=== PATIENT | female | born 1985 | race Caucasian/White ===

== ENCOUNTER 2018-12-15 23:16 | Inpatient (IN) ==
[2018-12-16 00:13] LABS: Basophils # 0.1 K/mm3 (0-0.2); Basophils % 0.6 % (0.1-2.0); Eosinophils # 0.1 K/mm3 (0.0-0.4); Eosinophils % 0.6 % (0.1-12.0); Hematocrit 33.4 % (37.0-47.0); Hemoglobin 11.5 g/dL (12.2-16.2); Lymphocytes # 2.6 K/mm3 (0.7-4.5); Lymphocytes % 20.9 % (10-50); Mean Corpuscular HGB Conc 34.4 g/dL (31.8-35.4); Mean Corpuscular Hemoglobin 29.2 pg (27.0-31.2); Mean Platelet Volume 9.3 fl (7.4-10.4); Monocytes # 0.6 K/mm3 (0.1-1.0); Monocytes % 4.9 % (1.7-9.3); Neutrophils # 9.3 K/mm3 (1.8-7.8); Neutrophils % 73.1 % (37.0-80.0); Platelet Count 187 K/mm3 (142-424); Red Blood Count 3.93 M/mm3 (4.20-5.40); Red Cell Distribution Width 14.6 % (11.5-17.5); White Blood Count 12.7 K/mm3 (4.8-10.8)
--- NOTE | 2018-12-16 00:23 | History & Physical Report ---
OB - H&P: HPI Antepartum - History of Present Illness Chief complaint: Ruptured membranes History of present illness: She is a 33-year-old 3 para 2 who is 40 weeks and 1 day gestational age. She has had care in [facility] and lives in [place]. She ruptured her membranes at home tonight around 930 and because she did not think she was going to make it to the hospital in [place] she asked the ambulance to bring her to [place]. - History of Present Criteria for establishing EDC:: LMP confirmed by 1st trimester US care: good care Ultrasounds: normal 1st trimester US, normal mid trimester US Obstetrical complications: none Medical complications: neurological, other Narrative: She has a history of seizures and takes Keppra. [facility] History I have reviewed the patient's past medical history: Yes - *Social History Alcohol Intake: never Review of Systems - Review of Systems Review of systems:: pertinent systems reviewed and negative unless documented below Meds Allergies Allergy/AdvReac Type Severity Reaction Status Date / Time haloperidol [From Haldol] Allergy Unknown Verified 05/29/18 07:03 NSAIDS (Non-Steroidal Allergy Unknown Verified 05/29/18 07:03 Anti-Inflamma Penicillins Allergy Unknown Verified 05/29/18 07:03 OB - H&P: Exam - Constitutional no acute distress - Routine HEENT Exam Head: Present: normocephalic Eye: Present: EOMI, PERRL ENT: Present: mucous membranes moist - Routine Neck Exam Present: supple, full ROM - Routine Respiratory Exam Absent: accessory muscle use (good air entry bilaterally), respiratory distress, wheezes, crackles - Routine Cardiovascular Exam Present: RRR. Absent: murmur - Routine Abdominal Exam Present: soft, normoactive bowel sounds. Absent: tenderness, distended, guarding - Routine Rectal Exam Patient deferred: visual exam, digital exam - Routine Exam Patient deferred: external exam, groin exam, perineal exam Comments: Her cervix is 4 cm 75% Station -2. There is thin meconium. Nonstress test is reactive. She is having contractions every 3-5 minutes. - Routine Extremities Exam Present: full ROM. Absent: cyanosis, edema - Routine Skin Exam Present: intact. Absent: cyanosis - Routine Neurological Exam Present: alert, oriented X3 - Routine Psychiatric Exam Present: normal affect OB - Results - Labs Labs: Short CBC 12/15/18 Range/Units 23:35 WBC 12.7 H (4.8-10.8) K/mm3 Hgb 11.5 L (12.2-16.2) g/dL Hct 33.4 L (37.0-47.0) % Plt Count 187 (142-424) K/mm3 OB - A/P Antepartum (1) Maternal seizure disorder Current visit: Yes Status: Acute (2) Tobacco smoking affecting Current visit: Yes Status: Acute (3) Meconium in amniotic fluid Current visit: Yes Status: Acute (4) Normal delivery at term Current visit: Yes Status: Acute - Additional Plan Planning to breastfeed?: No Plan: expectant management Additional Information:: She is 4 cm dilated 75% -2. We will continue to monitor her and expect a vaginal delivery since she has had 2 previous vaginal deliveries. Fetus is in the cephalic presentation. Nonstress test is reactive.
[2018-12-16 01:39] LABS: Microscopic, Urine URINE MICROSCOPIC (MICROSCOPIC)
[2018-12-16 01:40] LABS: Appearance,Urine CLEAR (Clear); Bilirubin,Urine Negative (Negative); Blood, Urine Negative (Negative); Color,Urine YELLOW (Yellow); Glucose,Urine (UA) Negative (Negative); Ketones,Urine Negative (Negative); Leukocyte Esterase,Urine Negative (Negative); PH,Urine 6.5 (5.0-8.5); Protein,Urine Negative (Negative); Specific Gravity, Urine <= 1.005 (1.005-1.030); Urobilinogen,Urine 0.2 EU/dl (0.2)
[2018-12-16 01:45] LABS: Amphetamine/Metha Screen,Urine Negative ng/mL (<1000); Barbiturates Screen,Urine Negative ng/mL (<200); Benzodiazepines Screen,Urine Positive ng/mL (<200); Cannabinoid Screen,Urine Negative ng/mL (<50); Cocaine Screen,Urine Negative ng/mL (<300); Methadone Screen,Urine Negative ng/mL (<300); Opiate Screen,Urine Negative ng/mL (<300); Phencyclidine Screen,Urine Negative ng/mL (<25)
[2018-12-16 01:46] LABS: Amorphous Sediment,Urine Trace /lpf; Bacteria,Urine Trace /lpf
--- NOTE | 2018-12-16 03:18 | Progress Note ---
[facility] Anesthesia Checklist - Patient Identification Patient Identification: Arm Band - Structural Data Admitted From: Home Planned Operative Procedure/s: labor epidural Consent for Planned Operative Procedure(s) Verified: Yes Verified Documents: Surgical Consent, History and Physical - NPO Status Verified Time NPO: 00:00 - Additional verifications Anesthesia Reactions: No - Airway Assessment C-Spine Mobility Assessed: Yes TMJ Mobility Assessed: Yes - Neurological Assessment Level of Consciousness: Awake, Alert, Drowsy (pt drowsy due to recent dose of stadol) - Anesthesia Plan Anesthesia Risk discussed: Yes Anesthesia Plan: Verified ASA Class: II Anesthesia Type: Epidural [facility] History I have reviewed the patient's past medical history: Yes Medical History: Reports:: Seizures Have you ever received a pneumonia vaccine?: No Have you received a flu vaccine this season?: No Other Surgeries: No: - *Social History Alcohol Intake: never Para: 2
--- NOTE | 2018-12-16 09:30 | Progress Note ---
Labor Note - Subjective: Date: 12/16/18 Time: 09:29 regular contraction - Objective: NST:: Reactive Contractions:: every 2-3 minutes Cervical Dilation:: 5 Effacement:: 100% Station: 0 Membranes: ruptured - Fetus: Monitoring?: Yes monitoring type:: External - Assessment: Labor progressing?: Yes Cephalopelvic disproportion?: No Patient Problems: All Active Problems Seizure (Acute) Maternal seizure disorder (Acute) Tobacco smoking affecting (Acute) Meconium in amniotic fluid (Acute) Normal delivery at term (Acute) - Plan: Anesthesia for epidural?: No Continue to labor down?: Yes Plan for ?: No Continue to monitor?: Yes Start pushing?: No Comment:: She continues to progress. The nonstress test reactive. We will expect a vaginal delivery.
--- NOTE | 2018-12-16 13:45 | Procedure Note ---
- Delivery Note Delivery Date:: 12/16/18 Delivery Time:: 13:00 Anesthesia Type: Epidural Was labor medically induced?: No Gestational age (weeks): 41 Infant delivered prior to 39 weeks?: No at 1 minute: 7 at 5 minutes: 9 Delivery Procedure:: Spontaneous vaginal delivery of vigorous liveborn female over intact perineum. Apgars: 7 & 9 Delivery uncomplicated; no nuchal cord or shoulder dystocia with delivery Thick meconium noted Infant taken to warmer for nursing assessment and suction immediately after umbilical cord clamped/cut Placenta spontaneously expressed and examined; noted to be complete/intact Vulva, vagina, and cervix inspected; no perineal, vaginal, labial or cervical lacerations noted EBL: 300cc All sponge/needle/instrument counts correct at conclusion of procedure Disposition: Mom/baby stable to recovery in [facility] SW consult in progress Placental Delivery Description: Spontaneous
[2018-12-17 07:01] LABS: Hematocrit 33.7 % (37.0-47.0); Hemoglobin 11.5 g/dL (12.2-16.2)
[2018-12-17 20:30] VITALS: BP 143/66
--- NOTE | 2018-12-18 08:23 | Discharge Summary ---
General - General Admission date:: 12/15/18 Discharge date: 12/18/18 HPI HPI: She is a 33-year-old 3 now para 3 who was 40 and 1 she ruptured membranes at home and came in by ambulance to labor and delivery. She says she has received care in [facility]. Hospital Course Hospital Course: She had ruptured membranes and progressed to full dilation. She delivered spontaneously a liveborn female child at 12:32 PM on December 16, 2018. The baby weighed 7 pounds 7 ounces and was 19 inches long. She had Apgars of 7 at 1 minute and 9 at 5 minutes. There was thin meconium. She has done well and has remained afebrile throughout her hospitalization. She is eating and drinking and ambulating. She is bottlefeeding. Her drama professor is Dr. Villanueva. She has O Rh- blood and she has received RhoGam. She was group A streptococcus positive and did receive IV antibiotics while in labor. She is rubella immune. She is hepatitis B surface antigen negative. She is hepatitis C positive. She is being seen by drug abuse social worker this morning and they will determine whether she gets to go home with her baby. Apparently her other 2 children are in foster care. Rhogam Administration: Given Objective Vital signs: Temp Pulse Resp BP Pulse Ox 98.2 F 46 L 16 143/66 H 99 12/17/18 20:00 12/17/18 20:00 12/17/18 20:00 12/17/18 20:00 12/17/18 20:00 no acute distress Results Labs on day of discharge: Labs from last 24 hours 12/17/18 12/17/18 12/17/18 22:15 06:18 06:18 Blood Type Antibody Screen Negative Screen Positive A Baby's Rh Status Positive Rhogam Infusion Rhogam release KB Hemoglobin No cells seen DS: Diagnosis - Discharge Diagnosis (1) Maternal seizure disorder Status: Acute (2) Tobacco smoking affecting Status: Acute (3) Meconium in amniotic fluid Status: Acute (4) Normal delivery at term Status: Acute (5) GBS (group B Streptococcus carrier), +RV culture, currently Status: Acute (6) Hepatitis C antibody test positive Status: Acute Problem details: records [facility] document negative RNA (7) Limited care Status: Acute Problem details: 3 total visits this Discharge Plan - Patient Discharge Instructions ACTIVITY: No heavy lifting DIET: continue same diet Additional Instructions: NO HEAVY LIFTING, NO STRENUOUS ACTIVITY, NOTHING IN THE VAGINA FOR 6 WEEKS. Patient Instructions: Depression, Hemorrhage, [facility] Post Discharge Instructions - Follow up Plan Follow up with: Ariane Olivares MD [Staff Physician] - Disposition: Home, Self-[facility] Medications: Home Medications Medication Instructions Recorded Confirmed Type [id number]/Iron Fumarate/FA/Dss 1 each PO DAILY 12/16/18 12/16/18 History [ 19 Tablet] cloNIDine HCl [cloNIDine 0.2mg 0.2 mg PO HS 12/16/18 12/16/18 History Tablet] levETIRAcetam [Keppra] 1,000 mg PO BID 12/16/18 12/16/18 History Prescriptions/Medication Reconciliation: Continue levETIRAcetam [Keppra] 1,000 mg PO BID Rav261/Iron Fumarate/FA/Dss [ 19 Tablet] 1 each PO DAILY cloNIDine HCl [cloNIDine 0.2mg Tablet] 0.2 mg PO HS
== END 2018-12-18 12:00 | disposition home or self-care (01) | DRG 806 ==
LOC: OB → OBSVTOIN 23:16
PROVIDERS: ADMIT Nurse Practitioner Obstetrics & Gynecology; ATTEND Nurse Practitioner Obstetrics & Gynecology
CPT/HCPCS: 36415; 59025; 80177; 80305; 81001; 85014; 85018; 85025; 85460; 85461; 86850; 94640; 94761; J0595; J1050; J2790; S0077

== ENCOUNTER 2020-06-11 00:04 | Emergency (ER) | payer MEDICAID, SELFPAY ==
[2020-06-11 00:23] VITALS: BMI 35.7
[2020-06-11 00:25] VITALS: BP 105/64; PULSE 75; RESP 16; TEMP 37.7; O2SAT 100; BMI 39.9
--- NOTE | 2020-06-11 00:32 | XR_ITS ---
PROCEDURE: XR CHEST PORTABLE CLINICAL HISTORY: cough COMPARISON: CXR2 CHEST-AP VIEW ONLY from 09/28/2015 CXR1 CHEST-PORTABLE from 10/07/2015 FINDINGS: The cardiomediastinal silhouette and pulmonary vascularity are within normal limits. The lungs are clear without infiltrates, suspicious nodules, or pleural effusions. Calcified granuloma is present in the right lower lung zone No acute bony abnormalities. IMPRESSION: No acute findings. Dictated by: John Argueta MD 06/11/2020 06:28 Electronically signed by John Argueta MD in [place] 06/11/2020 06:28
[2020-06-11 00:43] LABS: Microscopic, Urine URINE MICROSCOPIC (MICROSCOPIC)
[2020-06-11 00:51] LABS: Alanine Aminotransferase 14 U/L (12-78); Albumin Level 4.2 g/dl (3.5-5.0); Albumin/Globulin Ratio 1.5 (1.1-1.8); Alkaline Phosphatase 98 U/L (38-126); Anion Gap 14.4 mEq/L (5-15); Aspartate Amino Transferase 25 U/L (14-36); Bilirubin,Total 0.6 mg/dl (0.2-1.3); Blood Urea Nitrogen 7 mg/dl (7-17); Carbon Dioxide 23 mmol/L (22.0-30.0); Chloride 107 mmol/L (98-107); Creatinine Clearance Estimated 225 mL/min (50-200); Estimated Glomerular Filt Rate 114 ml/min (>60); Ethyl Alcohol 90 mg/dl (0-10); GFR (African American) 138 ML/MIN (>60); Globulin 2.8 g/dL (1.3-3.2); Glucose 89 mg/dl (74-100); Potassium 3.4 mmoL/L (3.5-5.1); Sodium 141 mmol/L (136-145)
[2020-06-11 00:58] LABS: Appearance,Urine CLEAR (Clear); Bilirubin,Urine Negative (Negative); Blood, Urine Negative (Negative); Color,Urine YELLOW (Yellow); Glucose,Urine (UA) Negative (Negative); Ketones,Urine Negative (Negative); Leukocyte Esterase,Urine TRACE (Negative); Nitrate,Urine POSITIVE (Negative); PH,Urine 6.5 (5.0-8.5); Protein,Urine Negative (Negative); Specific Gravity, Urine <= 1.005 (1.005-1.030); Urobilinogen,Urine 0.2 EU/dl (0.2)
[2020-06-11 01:00] VITALS: BP 116/74; PULSE 66; RESP 16; O2SAT 98
[2020-06-11 01:01] LABS: Basophils # 0.1 K/mm3 (0-0.2); Basophils % 0.7 % (0.1-2.0); Eosinophils # 0.2 K/mm3 (0.0-0.4); Eosinophils % 1.3 % (0.1-12.0); Hemoglobin 14.6 g/dL (12.2-16.2); Lymphocytes # 4.2 K/mm3 (0.7-4.5); Lymphocytes % 35.5 % (10-50); Mean Corpuscular HGB Conc 34.9 g/dL (31.8-35.4); Mean Corpuscular Hemoglobin 29.5 pg (27.0-31.2); Mean Corpuscular Volume 84.8 fl (81-99); Mean Platelet Volume 8.9 fl (7.4-10.4); Monocytes # 0.6 K/mm3 (0.1-1.0); Monocytes % 4.8 % (1.7-9.3); Neutrophils # 6.8 K/mm3 (1.8-7.8); Neutrophils % 57.7 % (37.0-80.0); Platelet Count 232 K/mm3 (142-424); Red Blood Count 4.95 M/mm3 (4.20-5.40); Red Cell Distribution Width 14.5 % (11.5-17.5); White Blood Count 11.8 K/mm3 (4.8-10.8)
[2020-06-11 01:10] LABS: Urine Pregnancy, HCG Qual. Negative (Negative)
[2020-06-11 01:11] LABS: Bacteria,Urine 1+ /lpf
--- NOTE | 2020-06-11 01:20 | PC.NURSE ---
discussed in-house swab with house worker. house worker to approach re: necessary of test needed
[2020-06-11 01:22] LABS: Barbiturates Screen,Urine Negative ng/ml (<200); Benzodiazepines Screen,Urine Negative ng/ml (<200); Cannabinoid Screen,Urine Positive ng/ml (<50); Cocaine Screen,Urine Negative ng/ml (<300); Methadone Screen,Urine Negative ng/ml (<300); Opiate Screen,Urine Negative ng/ml (<300); Phencyclidine Screen,Urine Negative ng/ml (<25)
[2020-06-11 01:27] LABS: Coronavirus 19 IgG Antibody Negative (Negative); Coronavirus 19 IgM Antibody Negative (Negative); Strep Scrn Group A (Rapid) Negative (Negative)
[2020-06-11 01:28] LABS: Amphetamine/Metha Screen,Urine Negative ng/ml (<1000)
[2020-06-11 01:30] VITALS: BP 138/87; PULSE 66; RESP 15; O2SAT 97
--- NOTE | 2020-06-11 01:46 | HMH.EDFEV ---
ED Disposition Clinical Impression: Alcohol use, Obesity, Class II, BMI 35-39.9, Positive urine drug screen CAP (community acquired pneumonia) Qualifiers: Laterality: right Lung location: lower lobe of lung Qualified Code(s): J18.9 - Pneumonia, unspecified organism Disposition: Home, Self-Care Condition on Discharge: Good Instructions: DI for Fever (Symptom) -- Adult Additional Instructions: fluids and tyenol and use antibiotic and quartine self pending results of covid-19 tests and social distance and mask with good hand washing Prescriptions: levoFLOXacin [Levaquin 500mg tab] 500 mg PO DAILY #7 tab Prescription Printed Referrals: PCP,No [Primary Care Provider] - - Critical Care Critical Care Time: No Attestation: On 06/11/20, the high probability of a clinically significant, sudden or life threatening deterioration of the following system(s) required my full and direct attention, intervention and personal management. The time I documented below is in addition to time spent performing reported procedures but includes the following listed in this critical care notation. Medical Decision Making - Medical Records Medical records reviewed: Yes: I reviewed the patient's medical records. - Yonatan Inquiry Pt receiving controlled substance: No Vital Signs: 06/11/20 00:25 06/11/20 01:00 06/11/20 01:30 Temperature 99.9 F H Temperature Source Oral Pulse Rate [Right Brachial] 75 66 66 Respiratory Rate 16 16 15 Blood Pressure [Right Arm] 105/64 L 116/74 138/87 Blood Pressure Mean [Right Arm] 77 88 104 Blood Pressure Source [Right Arm] Automatic Cuff Automatic Cuff Automatic Cuff Blood Pressure Position [Right Arm] Supine Sitting Sitting 02 Sat by Pulse Oximetry 100 98 97 Oxygen Delivery Method Room Air Room Air Room Air 06/11/20 02:00 Temperature Temperature Source Pulse Rate [Right Brachial] 66 Respiratory Rate 15 Blood Pressure [Right Arm] 96/42 L Blood Pressure Mean [Right Arm] 60 Blood Pressure Source [Right Arm] Automatic Cuff Blood Pressure Position [Right Arm] Sitting 02 Sat by Pulse Oximetry 97 Oxygen Delivery Method Room Air - Lab Data Lab results reviewed: Yes: I reviewed the patient's lab results. Lab Results 06/11/20 00:20: Urine Color Yellow, Urine Appearance Clear, Urine pH 6.5, Ur Specific [place] <= 1.005, Urine Protein Negative, Urine Glucose (UA) Negative, Urine Ketones Negative, Urine Blood Negative, Urine Nitrate Positive, Urine Bilirubin Negative, Urine Urobilinogen 0.2, Ur Leukocyte Esterase Trace, Urine WBC 3-5, Ur Squamous Epith Cells 3-5, Urine Bacteria 1+ 06/11/20 00:20: WBC 11.8 H, RBC 4.95, Hgb 14.6, Hct 42.0, MCV 84.8, MCH 29.5, MCHC 34.9, RDW 14.5, Plt Count 232, MPV 8.9, Neut % (Auto) 57.7, Lymph % (Auto) 35.5, [place] % (Auto) 4.8, Eos % (Auto) 1.3, Baso % (Auto) 0.7, Neut # (Auto) 6.8, Lymph # (Auto) 4.2, [place] # (Auto) 0.6, Eos # (Auto) 0.2, Baso # (Auto) 0.1 06/11/20 00:20: Urine HCG, Qual Negative 06/11/20 00:20: Sodium 141, Potassium 3.4 L, Chloride 107, Carbon Dioxide 23, Anion Gap 14.4, BUN 7, Creatinine 0.60, Estimated Creat Clear 225, Estimated GFR 114, Est GFR ( Amer) 138, Glucose 89, Calcium 9.0, Total Bilirubin 0.6, AST 25, ALT 14, Alkaline Phosphatase 98, Total Protein 7.0, Albumin 4.2, Globulin 2.8, Albumin/Globulin Ratio 1.5 06/11/20 00:20: Lactate 1.0 06/11/20 00:20: Influenza Type A Ag Negative, Influenza Type B Ag Negative, SARS-CoV-2 IgG Ab (Rapid) Negative, SARS-CoV-2 IgM Ab (Rapid) Negative 06/11/20 00:20: Group A Strep Rapid Negative 06/11/20 00:20: Urine Opiates Screen Negative, Urine Methadone Screen Negative, Ur Barbituates Screen Negative, Ur Phencyclidine Scrn Negative, Ur Amphetamines Screen Negative, U Benzodiazepines Scrn Negative, Urine Cocaine Screen Negative, U Marijuana (THC) Screen Positive H 06/11/20 00:20: Plasma/Serum Alcohol 90 H Result diagrams: 06/11/20 00:20 06/11/20 00:20 Orders (Tests/Meds): ED MEDICATIONS Generi
--- NOTE | 2020-06-11 01:55 | PC.NURSE ---
now states patient can be swabbed with the overnight covid swab instead of rapid. lab notified.
[2020-06-11 02:00] VITALS: BP 96/42; PULSE 66; RESP 15; O2SAT 97
--- NOTE | 2020-06-11 02:03 | PC.NURSE ---
call placed to sig other by patient, told to come pick her up
[2020-06-11 02:42] VITALS: BP 124/70; PULSE 75; RESP 16; TEMP 36.8; O2SAT 98
[2020-06-12 13:00] LABS: Covid-19 Nasal PCR Sendout Lex Not Detected
== END 2020-06-11 02:42 | disposition home or self-care (01) ==
PROVIDERS: Emergency Provider Emergency Medicine
DX: J18.9 Pneumonia, unspecified organism (principal); F10.10 Alcohol abuse, uncomplicated; E66.9 Obesity, unspecified; Z68.39 Body mass index [BMI] 39.0-39.9, adult; F12.10 Cannabis abuse, uncomplicated; R56.9 Unspecified convulsions; Z03.818 Encounter for observation for suspected exposure to other biological agents ruled out; Z88.0 Allergy status to penicillin; Z88.8 Allergy status to other drugs, medicaments and biological substances; Z79.899 Other long term (current) drug therapy
CPT/HCPCS: 71045; 80053; 80305; 81001; 81025; 83605; 85025; 86328; 87040; 87086; 87275; 87276; 87430; 96365; 96367; 96375; 99284; J1956; U0004

== ENCOUNTER 2022-02-07 18:29 | Inpatient (IN) | payer MEDICAID, SELFPAY ==
--- NOTE | 2022-02-07 18:41 | P.PCN_ITS ---
- Delivery Note Delivery Date:: 02/07/22 Delivery Time:: 18:23 Anesthesia Type: None Was labor medically induced?: No Induction method: none Gestational age (weeks): 38 delivered prior to 39 weeks?: Yes Justification for early elective delivery:: Active Labor Infant Gender: Female at 1 minute: 9 at 5 minutes: 9 Delivery Procedure:: She is a 36-year-old 4 para 3 for now at 38 weeks gestational age. She has had limited care. She has been seen in [place]. She came in in active labor and was found to be fully dilated when she arrived. She subsequently precipitously progressed to full dilation and delivered spontaneously a liveborn female child at 6:23 PM in the evening of February 07, 2022. The nurses were in attendance for the delivery. I arrived about a minute after the delivery. She received IV oxytocin using gentle traction the cord and countertraction the fundus I was able to easily deliver the placenta intact at 6:28 PM. Had normal three-vessel cord. There were no perineal or vaginal lacerations. Her blood type is unknown. As is her group B strep status. The estimated blood loss was approximately 200 cc. Placental Delivery Description: Spontaneous
[2022-02-07 18:43] VITALS: BMI 25.7
--- NOTE | 2022-02-07 18:48 | P.HP_ITS ---
OB - H&P: HPI Antepartum - History of Present Illness Chief complaint: Active labor, insufficient care History of present illness: She is a 36-year-old 4 para 3 who arrived in active labor and was found to be fully dilated. She delivered precipitously. She has had insufficient care in [place]. She is not sure how many visits she had - History of Present Criteria for establishing EDC:: LMP confirmed by 1st trimester US care: limited care Ultrasounds: normal 1st trimester US Obstetrical complications: none Medical complications: none [facility] History I have reviewed the patient's past medical history: Yes Medical History: Reports:: Seizures *Have you ever received a pneumonia vaccine?: Yes *Have you received a flu vaccine this season?: Yes Other Surgeries: No: - *Social History Smoking Status: Current every day smoker Alcohol Intake: never *Occupational Status:: unemployed *Travel in the last 8 weeks: None Family Hx:: No significant family history Review of Systems - Review of Systems Review of systems:: pertinent systems reviewed and negative unless documented below Meds Home Medications Medication Instructions Recorded Confirmed Type Prenat 115/Iron Fum/Folic/Dss 1 each PO DAILY 12/16/18 12/16/18 History [ 19 Tablet] cloNIDine HCL [cloNIDine 0.2mg 0.2 mg PO HS 12/16/18 12/16/18 History Tablet] levETIRAcetam [Keppra] 1,000 mg PO BID 12/16/18 12/16/18 History levoFLOXacin [Levaquin 500mg 500 mg PO DAILY #7 tab 06/11/20 Rx tab] Allergies Allergy/AdvReac Type Severity Reaction Status Date / Time haloperidol [From Haldol] Allergy Unknown Verified 05/29/18 07:03 NSAIDS (Non-Steroidal Allergy Unknown Verified 05/29/18 07:03 Anti-Inflamma Penicillins Allergy Unknown Verified 05/29/18 07:03 OB - H&P: Exam - Constitutional no acute distress - Routine HEENT Exam Head: Present: normocephalic Eye: Present: EOMI, PERRL ENT: Present: mucous membranes moist - Routine Neck Exam Present: supple, full ROM - Routine Respiratory Exam Absent: accessory muscle use (good air entry bilaterally), respiratory distress, wheezes, crackles - Routine Cardiovascular Exam Present: RRR. Absent: murmur - Routine Abdominal Exam Present: soft, normoactive bowel sounds. Absent: tenderness, distended, guarding - Routine Rectal Exam Patient deferred: visual exam, digital exam - Routine Exam Patient deferred: external exam, groin exam, perineal exam - Routine Extremities Exam Present: full ROM. Absent: cyanosis, edema - Routine Skin Exam Present: intact. Absent: cyanosis - Routine Neurological Exam Present: alert, oriented X3 - Routine Psychiatric Exam Present: normal affect OB - A/P Antepartum (1) Insufficient care Status: Acute (2) Precipitous delivery, delivered (current hospitalization) Status: Acute - Additional Plan Planning to breastfeed?: No Plan: other Additional Information:: She arrived in active labor and delivered precipitously.
[2022-02-07 19:05] LABS: Coronavirus 19, PCR Not Detected (NotDetected); Influenza A, PCR Not Detected (NotDetected); Influenza B, PCR Not Detected (NotDetected)
[2022-02-07 19:10] LABS: Basophils # 0.2 K/mm3 (0-0.2); Basophils % 1.3 % (0.1-2.0); Eosinophils # 0.1 K/mm3 (0.0-0.4); Eosinophils % 0.6 % (0.1-12.0); Hematocrit 31.7 % (37.0-47.0); Hemoglobin 10.2 g/dL (12.2-16.2); Lymphocytes # 2.3 K/mm3 (0.7-4.5); Lymphocytes % 17.1 % (10-50); Mean Corpuscular Hemoglobin 27.4 pg (27.0-31.2); Mean Corpuscular Volume 85.5 fl (81-99); Monocytes # 0.6 K/mm3 (0.1-1.0); Monocytes % 4.8 % (1.7-9.3); Neutrophils # 10.2 K/mm3 (1.8-7.8); Neutrophils % 76.2 % (37.0-80.0); Platelet Count 245 K/mm3 (142-424); Red Blood Count 3.71 M/mm3 (4.20-5.40); Red Cell Distribution Width 17.1 % (11.5-17.5); White Blood Count 13.3 K/mm3 (4.8-10.8)
[2022-02-07 19:47] VITALS: BMI 25.0
[2022-02-07 20:11] LABS: Microscopic, Urine URINE MICROSCOPIC (MICROSCOPIC)
[2022-02-07 20:12] LABS: Appearance,Urine CLEAR (Clear); Bilirubin,Urine Negative (Negative); Blood, Urine 3+ (Negative); Color,Urine RED (Yellow); Glucose,Urine (UA) TRACE (Negative); Ketones,Urine TRACE (Negative); Leukocyte Esterase,Urine 2+ (Negative); Nitrate,Urine POSITIVE (Negative); PH,Urine 7.5 (5.0-8.5); Protein,Urine 3+ (Negative)
[2022-02-07 21:46] LABS: Amphetamine/Metha Screen,Urine Negative ng/ml (<1000); Barbiturates Screen,Urine Negative ng/ml (<200)
[2022-02-07 21:47] LABS: Benzodiazepines Screen,Urine Negative ng/ml (<200)
[2022-02-07 21:48] LABS: Cannabinoid Screen,Urine Negative ng/ml (<50); Cocaine Screen,Urine Negative ng/ml (<300)
[2022-02-07 21:49] LABS: Methadone Screen,Urine Negative ng/ml (<300)
[2022-02-07 21:50] LABS: Opiate Screen,Urine Negative ng/ml (<300); Phencyclidine Screen,Urine Negative ng/ml (<25)
[2022-02-07 22:03] LABS: RBC,Urine TNTC #/hpf (0-3); Squamous Epithelial Cell,Urine Occasional #/hpf (0-5)
[2022-02-07 22:04] LABS: Bacteria,Urine Trace /lpf
[2022-02-08 06:49] LABS: Hematocrit 29.3 % (37.0-47.0); Hemoglobin 9.4 g/dL (12.2-16.2)
--- NOTE | 2022-02-08 07:23 | HMH.PHAINT ---
MEDICATION RECONCILIATION COMPLETED ON PATIENT USING EXTERNAL FILL HISTORY FROM PHARMACY. -MAREK MOELLER, EBONYD
[2022-02-08 08:41] LABS: Basophils # 0.2 K/mm3 (0-0.2); Basophils % 2.2 % (0.1-2.0); Eosinophils # 0.1 K/mm3 (0.0-0.4); Eosinophils % 0.9 % (0.1-12.0); Hematocrit 32.1 % (37.0-47.0); Hemoglobin 10.3 g/dL (12.2-16.2); Lymphocytes # 2.7 K/mm3 (0.7-4.5); Lymphocytes % 26.5 % (10-50); Mean Corpuscular Hemoglobin 27.5 pg (27.0-31.2); Monocytes # 0.6 K/mm3 (0.1-1.0); Neutrophils # 6.5 K/mm3 (1.8-7.8); Neutrophils % 64.4 % (37.0-80.0); Platelet Count 283 K/mm3 (142-424); Red Blood Count 3.73 M/mm3 (4.20-5.40); White Blood Count 10.1 K/mm3 (4.8-10.8)
--- NOTE | 2022-02-08 13:54 | HMH.ACPN2 ---
Internal Medicine - PN: Man *Date: 02/08/22 *Time: 13:54 Interval history: She is doing very well. She is bottlefeeding. Her lochia is normal. Exam Vital signs and Labs for Last 24 Hours: Laboratory Results - last 24 hr 02/07/22 18:55: WBC 13.3 H, RBC 3.71 L, Hgb 10.2 L, Hct 31.7 L, MCV 85.5, MCH 27.4, MCHC 32.0, RDW 17.1, Plt Count 245, MPV 10.0, Neut % (Auto) 76.2, Lymph % (Auto) 17.1, [place] % (Auto) 4.8, Eos % (Auto) 0.6, Baso % (Auto) 1.3, Neut # (Auto) 10.2 H, Lymph # (Auto) 2.3, [place] # (Auto) 0.6, Eos # (Auto) 0.1, Baso # (Auto) 0.2 02/07/22 18:55: Blood Type O Positive, Antibody Screen Negative 02/07/22 18:55: SARS-CoV-2 (PCR) Not detected, Influenza A Untype (PCR) Not detected, Influenza Type B (PCR) Not detected 02/07/22 19:40: Urine Color Red, Urine Appearance Clear, Urine pH 7.5, Ur Specific [place] 1.020, Urine Protein 3+, Urine Glucose (UA) Trace, Urine Ketones Trace, Urine Blood 3+, Urine Nitrate Positive, Urine Bilirubin Negative, Urine Urobilinogen 2.0, Ur Leukocyte Esterase 2+ A, Urine RBC Tntc, Urine WBC 5-10, Ur Squamous Epith Cells Occasional, Urine Bacteria Trace 02/07/22 19:40: Urine Opiates Screen Negative, Urine Methadone Screen Negative, Ur Barbituates Screen Negative, Ur Phencyclidine Scrn Negative, Ur Amphetamines Screen Negative, U Benzodiazepines Scrn Negative, Urine Cocaine Screen Negative, U Marijuana (THC) Screen Negative 02/08/22 06:10: Hgb 9.4 L, Hct 29.3 L 02/08/22 08:26: WBC 10.1, RBC 3.73 L, Hgb 10.3 L, Hct 32.1 L, MCV 86.0, MCH 27.5, MCHC 32.0, RDW 17.0, Plt Count 283, MPV 10.0, Neut % (Auto) 64.4, Lymph % (Auto) 26.5, [place] % (Auto) 6.0, Eos % (Auto) 0.9, Baso % (Auto) 2.2 H, Neut # (Auto) 6.5, Lymph # (Auto) 2.7, [place] # (Auto) 0.6, Eos # (Auto) 0.1, Baso # (Auto) 0.2 I & O for Last 24 hours: Intake & Output 02/06/22 02/07/22 02/08/22 02/09/22 11:59 11:59 11:59 11:59 Weight 150 lb - Constitutional no acute distress - *Routine HEENT Exam Head: Present: normocephalic Eye: Present: EOMI, PERRL ENT: Present: mucous membranes moist Assessment and Plan (1) Insufficient care Status: Acute Category: Medical Code(s): O09.30 - Supervision of with insufficient care, unspecified trimester (2) Precipitous delivery, delivered (current hospitalization) Status: Acute Category: Medical Code(s): O62.3 - Precipitate labor (3) Bipolar disorder Status: Acute Category: Medical Code(s): F31.9 - Bipolar disorder, unspecified (4) Borderline personality disorder Status: Acute Category: Medical Code(s): F60.3 - Borderline personality disorder (5) Hepatitis C antibody test positive Problem details: records [place] document negative RNA Status: Acute Category: Medical Code(s): R76.8 - Other specified abnormal immunological findings in serum (6) Maternal seizure disorder Status: Acute Category: Medical Code(s): O99.350 - Diseases of the nervous system complicating , unspecified trimester; G40.909 - Epilepsy, unspecified, not intractable, without status epilepticus (7) Normal delivery at term Status: Acute Category: Medical Code(s): O80 - Encounter for full-term uncomplicated delivery (8) Rh negative status during Problem details: Rhogam 11/25/18 Status: Acute Category: Medical Code(s): O26.899 - Other specified related conditions, unspecified trimester; Z67.91 - Unspecified blood type, Rh negative (9) Tobacco smoking affecting Status: Acute Category: Medical Code(s): O99.330 - Smoking (tobacco) complicating , unspecified trimester - Assessment and plan all Dx Assessment and Plan for all problems:: She says she is doing very well today. She would like Depo-Provera prior to discharge. We will plan to discharge her home tomorrow.
--- NOTE | 2022-02-08 15:26 | CARE MANAGER ---
Addendum entered by Yanna Anthony 02/09/22 14:50: Per patients nurse (Barbara) CPS did investigate this case and has decided that patient will discharge home and CPS is currently working on placement for infant. Original Note: CM received a consult r/t limited care and admitted THC use. I met with Ms. Bey this morning and obtained the following information from her. Patient has an address listed for [place], however she reports that she plans to discharge to [address] [place] [address] in [place], [place]. Patient could not proved the name of the physician that she states provided care, only that it was a female in [place]. Patient reports that she has 3 other children, 2 that are minors (3yrs and 4yrs), both of whom does not currently live with her. She states that both live with her cousin, Nanci Singh but could not provide a phone number. Patient reports that she quit drinking 5 years ago, smokes marijuana occasionally and has no prior history of IV drug use. Plans to take baby home. CM has been in contact with [facility] @ , who state that patient was seen at their facility 8 times during this with the last visit on 12/07/2021. According to nurse on OB, patient has been reported as being seen at [place] on 12/03/2021, where she was very agitated and refused all treatment with the exception of monitoring. It was also reported that she left AMA. Patient was noted to be very disoriented at time of admission here and doctor's were concerned about drug use. Patient, as well as baby has a clean urine drug screen upon admission. CM called and reported case to CPS. Case referral number is [id number]. CM was told that this was not picked up, however they have an open CPS case at this time. Gisselle Hastings @ [phone] extension [phone] is handling the case. CM notified by Gisselle that patient is not to leave this facility with baby under any circumstances. She plans to come see patient tomorrow, and states that she is concerned about baby's safety if parent's find out about the referral. She states that dad has been known to say that he would rather see baby than to lose custody . OB unit notified of conversation with Gisselle, and to be on high alert in regards to drugs being brought in to patient as well as baby's safety. CM will follow.
[2022-02-08 20:13] VITALS: BP 141/60; PULSE 67; RESP 18; TEMP 37; O2SAT 98
[2022-02-08 20:20] LABS: Benzodiazepines Screen,Urine Negative ng/ml (<200)
[2022-02-08 20:21] LABS: Amphetamine/Metha Screen,Urine Negative ng/ml (<1000)
[2022-02-08 20:22] LABS: Barbiturates Screen,Urine Negative ng/ml (<200); Cannabinoid Screen,Urine Negative ng/ml (<50)
[2022-02-08 20:23] LABS: Cocaine Screen,Urine Negative ng/ml (<300)
[2022-02-08 20:24] LABS: Methadone Screen,Urine Negative ng/ml (<300); Opiate Screen,Urine Negative ng/ml (<300)
[2022-02-08 20:25] LABS: Phencyclidine Screen,Urine Negative ng/ml (<25)
[2022-02-09 03:20] VITALS: BP 110/55; PULSE 62; RESP 16; TEMP 36.8; O2SAT 99
[2022-02-09 08:17] LABS: HIV Screen 4th Generation wRfx Non Reactive (Non Reactive); Hepatitis B Surface Antigen Negative (Negative)
--- NOTE | 2022-02-09 10:53 | [facility].OBDCSM ---
General - General Admission date:: 02/07/22 Discharge date: 02/09/22 HPI - History of Present Illness History of present illness: She is a 36-year-old 4 para 3 at 37 and 2 weeks gestational age. She came in in active labor and rapidly progressed to full dilation. She delivered precipitously. She has been seen in [place] and did have 8 visits. She has not been seen since mid November. Hospital Course Hospital Course: She arrived in active labor and was found to be fully dilated. She delivered precipitously a liveborn female child at 6:23 PM in the afternoon of February 07, 2022. The baby weighed 6 pounds and 0 ounces. She was 17-1/2 inches long. She had Apgars of 9 at 1 minute and 9 at 5 minutes. She has done well and has remained afebrile throughout her hospitalization. She is eating and drinking and ambulating. She is bottlefeeding. She has O+ blood, she is rubella immune and group B streptococcus was unknown. She is discharged home to follow-up with me in approximately 2 weeks time. She was given a shot of Depo-Provera for control. She would like to have a bilateral salpingectomy and today she signed her Medicaid consent forms for bilateral salpingectomy. She was seen by social work supervisor and apparently she has an open case. Its not clear whether they will let her take her baby home with her. Rhogam Administration: Not Indicated Objective Vital signs: Temp Pulse Resp BP Pulse Ox 98.2 F 62 16 110/55 L 99 02/09/22 03:20 02/09/22 03:20 02/09/22 03:20 02/09/22 03:20 02/09/22 03:20 no acute distress - *Routine HEENT Exam Head: Present: normocephalic Eye: Present: EOMI, PERRL ENT: Present: mucous membranes moist Results Labs on day of discharge: Labs from last 24 hours 02/08/22 02/08/22 19:00 08:26 Urine Opiates Screen Negative Urine Methadone Screen Negative Ur Barbituates Screen Negative Ur Phencyclidine Scrn Negative Ur Amphetamines Screen Negative U Benzodiazepines Scrn Negative Urine Cocaine Screen Negative U Marijuana (THC) Screen Negative Hep Bs Antigen Negative HIV 1&2 Ag/Ab, 4th Gen Non reactive Rubella IgG Antibody 3.90 Preliminary micro results at discharge 02/07/22 19:40 Urine Culture - Preliminary Urine,Clean Catch NO GROWTH AFTER 24 HOURS DS: Diagnosis - Discharge Diagnosis (1) Insufficient care Status: Acute (2) Precipitous delivery, delivered (current hospitalization) Status: Acute (3) Bipolar disorder Status: Acute (4) Borderline personality disorder Status: Acute (5) Hepatitis C antibody test positive Status: Acute Problem details: records [facility] document negative RNA (6) Maternal seizure disorder Status: Acute (7) Normal delivery at term Status: Acute (8) Tobacco smoking affecting Status: Acute Discharge Plan - Patient Discharge Instructions ACTIVITY: No heavy lifting DIET: continue same diet Additional Instructions: NOTHING IN THE VAGINA FOR 6 WEEKS NO TUB BATHS DRINK PLENTY OF FLUIDS Patient Instructions: Depression, Hemorrhage, DI for Labor and Delivery, Vaginal , DI for Pre-eclampsia, [facility] Post Discharge Instructions, Preventing the Spread of Coronavirus Discharge Instructions - Follow up Plan Follow up with: Marck Salinas MD [Primary Care Provider] - Disposition: Home, Self-Care Condition at discharge:: Stable Home Medications: Home Medications Medication Instructions Recorded Confirmed Type levETIRAcetam [Keppra] 1,000 mg PO BID 12/16/18 02/08/22 History Albuterol Sulfate [Proair Hfa] 2 puffs IH Q4HP PRN 02/08/22 02/08/22 History cloNIDine HCL [cloNIDine 0.1mg 0.2 mg PO HS 02/08/22 02/08/22 History Tablet] Prescriptions/Medication Reconciliation: Continued levETIRAcetam [Keppra] 1,000 mg PO BID Albuterol Sulfate [Proair Hfa
[2022-02-09 12:13] LABS: Rapid Plasma Reagin Ab Titer Non Reactive (NonRea<1:1)
[2022-02-16 10:57] LABS: Ethanol U, Quan NEGATIVE
== END 2022-02-09 12:15 | disposition home or self-care (01) | DRG 806 ==
PROVIDERS: Admitting Provider Nurse Practitioner Obstetrics & Gynecology; PCP Nurse Practitioner Obstetrics & Gynecology; Visit Provider Nurse Practitioner Obstetrics & Gynecology
DX: O62.3 Precipitate labor (principal); O99.354 Diseases of the nervous system complicating childbirth; Z37.0 Single live birth; O99.344 Other mental disorders complicating childbirth; Z3A.37 37 weeks gestation of pregnancy; F31.9 Bipolar disorder, unspecified; F60.3 Borderline personality disorder; G40.909 Epilepsy, unspecified, not intractable, without status epilepticus; O99.334 Smoking (tobacco) complicating childbirth; F17.210 Nicotine dependence, cigarettes, uncomplicated
CPT/HCPCS: 59409; 36415; 80305; 80307; 81001; 85014; 85018; 85025; 86592; 86762; 86850; 87086; 87340; 94761; C9803; G0283; U0003; U0005